=== PATIENT | male | born 1940 | race Caucasian/White ===

== ENCOUNTER 2017-02-15 09:15 | Emergency (ER) | payer OTHER ==
[~2017-02-15] VITALS: Ht 170.2 cm; Wt 57.1 kg
[~2017-02-15 09:15] MED LIST: LIPITOR20 MG; NEXIUM40 MG
[2017-02-15 10:07] LABS: CALCIUM 9.2 mg/dL (8.5-10.1); CREATININE 1.5 mg/dL (0.7-1.3)
[2017-02-15 10:13] LABS: ALBUMIN 4.1 g/dL (3.4-5.0); TOTAL BILIRUBIN 1.5 mg/dL (<0.1-1.0); TOTAL PROTEIN 7.8 g/dL (6.4-8.2)
[2017-02-15 10:22] LABS: ABSOLUTE NEUTROPHILS 7.3 thou/uL (1.4-8.2); BASOPHILS 0.4 % (0.0-2.0); EOSINOPHILS 0.3 % (0.0-3.0); HEMATOCRIT 44.9 % (42.0-52.0); HEMOGLOBIN 16.1 gm/dL (14.0-18.0); LYMPHOCYTES 13.6 % (24.0-44.0); MCH 33.3 pg (26.0-34.0); MCHC 35.8 g/dL (28.0-37.0); MONOCYTES 8.8 % (1.0-8.0); PLATELET COUNT 235 thou/uL (150-400); POLYS 76.9 % (36.0-66.0); RBC 4.82 mil/uL (4.50-6.00); RDW 13.2 % (10.5-14.5); WBC 9.6 thou/uL (4.0-11.0)
[2017-02-15 10:23] LABS: MANUAL DIFF NO
[2017-02-15 10:29] LABS: URINE BILIRUBIN 2+ (Negative); URINE BLOOD 3+ (Negative); URINE COLOR YELLOW; URINE GLUCOSE-RANDOM* NEGATIVE (Negative); URINE KETONES 2+ (Negative); URINE NITRITE NEGATIVE (Negative); URINE PROTEIN (DIPSTICK) TRACE (Negative); URINE SPECIFIC GRAVITY >= 1.030 (1.003-1.035)
[2017-02-15 10:45] LABS: ICTOTEST (BILI CONFIRMATORY) Negative (Negative)
[2017-02-15 10:48] LABS: SQUAMOUS 0-3 Few /LPF (0-3)
[2017-02-15 10:49] LABS: BACTERIA 1-9 Few /HPF (None Seen); CRYSTALS None Seen /LPF (None Seen); URINE WBC 0-5 Rare /HPF (0-5)
[2017-02-15 10:50] LABS: CASTS None Seen /LPF (None Seen)
[2017-02-15] MEDS ORDERED: BACTRIM DS TAB1 EACH PO (11:38)
[2017-02-15] MEDS ORDERED: SENNA8.6 MG PO (11:39)
[2017-02-15] MEDS ORDERED: MIRALAX17 GM PO (11:48)
[2017-02-15 12:02] VITALS: BP 147/64
== END 2017-02-15 12:03 | disposition home or self-care (01) ==
LOC: ER 09:15
PROVIDERS: Physician Assistant
DX: N17.9 Acute kidney failure, unspecified (principal); K59.00 Constipation, unspecified; N39.0 Urinary tract infection, site not specified; Z90.89 Acquired absence of other organs; Z88.0 Allergy status to penicillin; Z88.1 Allergy status to other antibiotic agents

== ENCOUNTER 2017-08-08 10:12 | Emergency (ER) | payer OTHER ==
[~2017-08-08] VITALS: Ht 177.8 cm; Wt 59.0 kg
[~2017-08-08 10:12] MED LIST changes: +BACTRIM DS TAB1 EACH PO; +MIRALAX17 GM PO; +SENNA8.6 MG PO
[2017-08-08 11:06] LABS: URINE BILIRUBIN NEGATIVE (Negative); URINE BLOOD 3+ (Negative); URINE CLARITY CLEAR; URINE COLOR YELLOW; URINE GLUCOSE-RANDOM* NEGATIVE (Negative); URINE KETONES NEGATIVE (Negative); URINE LEUKOCYTES NEGATIVE (Negative); URINE NITRITE NEGATIVE (Negative); URINE PROTEIN (DIPSTICK) NEGATIVE (Negative); URINE SPECIFIC GRAVITY 1.025 (1.005-1.035); URINE UROBILINOGEN 0.2 E.U./dl (0.2-1.0)
[2017-08-08 11:16] LABS: BACTERIA None Seen /HPF (None Seen); CASTS None Seen /LPF (None Seen); CRYSTALS None Seen /LPF (None Seen); SQUAMOUS None Seen /LPF (0-3); URINE RBC >20 Many /HPF (0-2); URINE WBC None Seen /HPF (0-5)
[2017-08-08 11:46] LABS: ABSOLUTE NEUTROPHILS 10.1 thou/uL (1.4-8.2); BASOPHILS 0.5 % (0.0-2.0); EOSINOPHILS 0.1 % (0.0-3.0); HEMATOCRIT 48.1 % (42.0-52.0); HEMOGLOBIN 16.7 gm/dL (14.0-18.0); LYMPHOCYTES 5.9 % (24.0-44.0); MCH 32.6 pg (26.0-34.0); MCHC 34.7 g/dL (28.0-37.0); MONOCYTES 3.3 % (1.0-8.0); PLATELET COUNT 261 thou/uL (150-400); POLYS 90.2 % (36.0-66.0); RBC 5.12 mil/uL (4.50-6.00); RDW 13.4 % (10.5-14.5); WBC 11.2 thou/uL (4.0-11.0)
[2017-08-08 11:51] LABS: CREATININE 1.6 mg/dL (0.7-1.3); POTASSIUM 4.4 mmol/L (3.5-5.1)
[2017-08-08 11:58] LABS: ALBUMIN 4.2 g/dL (3.4-5.0); DIRECT BILIRUBIN 0.1 mg/dL (<0.1-0.3); TOTAL BILIRUBIN 0.8 mg/dL (<0.1-1.0); TOTAL PROTEIN 7.3 g/dL (6.4-8.2)
[2017-08-08] MEDS ORDERED: NORCO 5-325 TA1 EACH PO (12:44)
[2017-08-08] MEDS ORDERED: FLOMAX0.4 MG PO (12:44)
== END 2017-08-08 13:18 | disposition home or self-care (01) ==
LOC: ER 10:12
PROVIDERS: Emergency Medicine
DX: N20.1 Calculus of ureter (principal); R10.31 Right lower quadrant pain; Z88.0 Allergy status to penicillin; Z88.1 Allergy status to other antibiotic agents